=== PATIENT | female | born 1965 | race Caucasian/White ===

== ENCOUNTER 2020-09-11 08:01 | Day surgery (SDC) | payer OTHER, SELFPAY ==
[2020-09-10 12:15] VITALS: BMI 33.3
[2020-09-11] VITALS (12 sets, daily range): BP systolic 129–161; BP diastolic 71–93; PULSE 82–117; RESP 14–22; TEMP 36.3–36.9; O2SAT 94–100
[2020-09-11 08:22] LABS: OR HCG Qualitative Urine Negative (Negative)
[2020-09-11] MEDS: sodium chloride 0.9% 1,000 ML 30 ML IV (08:50)
--- NOTE | 2020-09-11 09:06 | ANES.PREANE2 ---
Pre-Anesthetic Assessment Pre-Anesthetic Assessment: Height/Weight: Height 1.57 m Weight 82.554 kg Temp Pulse Resp BP Pulse Ox 98.2 F 82 18 161/82 98 09/11/20 08:25 09/11/20 08:25 09/11/20 08:25 09/11/20 08:25 09/11/20 08:25 Preop Diagnosis: cholecystitis Proposed Procedure: Operation Date: 09/11/20 09:30 Proposed Procedures p Laparoscopic poss open Cholecystectomy 21494 k82.2(Not Applicable) - David Hinton MD Last intake: Intake Last Liquid Date 09/10/20 Last Liquid Time 21:30 Last Solid Date 09/10/20 Last Solid Time 19:00 Social: Social History: No alcohol and No tobacco Exam: Pre-Anes Outpt Exam: alert, oriented x 3, clear to auscultation bilaterally and regular rate & rhythm Airway: Submandibular: WNL Cervical ROM: WNL MP: 2 Dentition: Full History/ROS: No significant history except as noted and No significant complaints Pulmonary: Pulmonary: Sleep apnea (cpap) CV/HEM: CV/HEM: None reported : Comments: kidney stones Hepatic: Hepatic: None reported GI: GI: GERD (controlled) Metabolic: Metabolic: None reported Musc/skel: Musc/skel: None reported Neuropsych: Neuropsych: PUENTE Anesthetic Plan: ASA status: 2 Anesthesia: General Meds/Allergies Current Medications: Current Medications Generic Name Dose Route Start Last Admin Trade Name Freq PRN Reason Stop Dose Admin Sodium Chloride 1,000 mls @ 30 ml s/hr 09/11/20 08:15 09/11/20 08:50 Sodium Chloride 0.9% IV 09/12/20 08:14 30 mls/hr .Q24H MAGDIEL Administration PFSH Anesthesia PFSH: Medical History Hypertension Sleep apnea Ureteral calculi Surgical History H/O section x 2 H/O colonoscopy 2017 H/O cystoscopy H/O lithotripsy History of appendectomy Hx of tubal ligation Family History Father CAD (coronary artery disease) Cancer Diabetes Hypertension Denies family history of Anesthesia complication Bleeding disorder Social History Smoking and tobacco status: never smoked Alcohol intake: never Lives independently: Yes Marital status: / Current occupational status: employed History of recent travel: No Female Reproductive History: Date of last menstrual period: 09/10/20 Data Anesthesia Other Labs: Laboratory Results - last 48 hr 09/11/20 08:19 Urine HCG, Qual Negative Cardiac Studies: No Data to Display
[2020-09-11] MEDS: scopolamine 1.5 Patch 1 PATCH TRANSDERMA (09:07)
--- NOTE | 2020-09-11 09:32 | W.PM.OPSUD ---
Surgery/Procedure H&P Update DATE OF PROCEDURE: September 11, 2020 DATE H&P PERFORMED: 08/30/20 H&P UPDATE INFORMATION: I have reviewed H&P completed within last 30 days, I have examined patient prior to procedure and No changes to prior documentation PREOP DIAGNOSIS: cholecystitis PLANNED PROCEDURE: Operation Date: 09/11/20 09:30 Proposed Procedures p Laparoscopic poss open Cholecystectomy 63770 k82.2(Not Applicable) - David Hinton MD
--- NOTE | 2020-09-11 10:55 | SUR.PHASEI ---
1052- ORAL AIRWAY OUT, SIMPLE MASK AT 6LPM SAT 97%
[2020-09-11] MEDS: morphine 4 mg/mL SDV 1 mL 2 MG IVP (11:07)
--- NOTE | 2020-09-11 11:10 | PM.OP ---
Operative Report Date of procedure: September 11, 2020 Pre-op Diagnosis: Biliary dyskinesia Post-op diagnosis: same Procedure Done: Laparoscopic cholecystectomy Specimens removed/disposition: Gallbladder Surgeon: David Hinton Anesthesia: General Condition: stable Disposition: PACU Procedure: The patient was taken to the operating room and was intubated under general anesthesia. After the antibiotic had been administered, the abdomen was prepped and draped in a sterile manner. Using a #15 blade, a 1 centimeter infraumbilical curvilinear incision was made and using an open Gucci technique the peritoneal cavity was entered. A 10 millimeter port was placed and 15 millimeters of pneumoperitoneum was created. A 10 millimeter, 30 degrees scope was then introduced. Three 5 millimeter ports were placed in the epigastric, midclavicular and the anterior axillary line two fingerbreadths below the costal margin on the right side under the direct visualization. Ratcheted forceps were introduced into the lateral most port and was used to retract the fundus of the gallbladder cephalad and using forceps the infundibulum of the gallbladder was retracted laterally. Using L-hook cautery the peritoneum overlying the Calot's triangle was opened medially and laterally until the cystic duct and the cystic artery were skeletonized. Dissection was carried along the body of the gallbladder and after ensuring critical view of safety, 4 clips applied on the cystic duct and 3 clips applied on the cystic artery and cut leaving, 3 clips on the remaining portion of the duct and 2 clips on the remaining portion of the artery. The rest of the gallbladder was dissected off the liver using L-hook cautery. There was no bleeding or bile leaking noted from the gallbladder fossa and the clips appeared to be in place. There was a tear in the body of the gallbladder where it was retracted with drainage of bile which was irrigated and suctioned out. There was no spillage of stones. An EndoCatch bag was introduced to remove the gallbladder. All the ports were removed under direct visualization and there was no bleeding noted from the port sites. The fascia of the umbilicus was closed using [id number] 0 Vicryl sutures and the subcutaneous tissue was approximated using 3-0 Vicryl sutures. The skin at all four ports were closed using 4-0 Monocryl and Dermabond. A total of 10 millimeters of 0.5% Marcaine was infiltrated around the port sites. The patient was stable throughout the procedure.
[2020-09-11] MEDS: meperidine 50 mg/mL INJ 12.5 MG IVP (11:11)
[2020-09-11] MEDS: HYDROcodone-acetaminophen 5-325 mg Tablet 1 TAB PO (12:00)
--- NOTE | 2020-09-11 13:47 | ANE.PACU2 ---
Inpatient post-anesthesia follow up: Airway intact: Yes Vital signs: Temperature 98.5 F Pulse Rate 84 Respiratory Rate 18 Blood Pressure 134/93 Pulse Oximetry 100 Oxygen Delivery Me thod Nasal Cannula Oxygen Flow Rate 2 Fraction of Inspir ed Oxygen Hydration adequate: Yes Nausea and vomiting: No Pain level: 2 Mental status: Baseline
== END 2020-09-11 12:40 | disposition home or self-care (01) ==
LOC: OR 08:03
PROVIDERS: Anesthesiology; PCP Family Medicine; Visit Provider Surgery
PROC: 0FT44ZZ Resection of Gallbladder, Percutaneous Endoscopic Approach (ICD-10-PCS; CPT 47562; principal; 2020-09-11 09:30)
DX: K80.10 Calculus of gallbladder with chronic cholecystitis without obstruction (principal); G47.30 Sleep apnea, unspecified; K21.9 Gastro-esophageal reflux disease without esophagitis; I10 Essential (primary) hypertension; Z82.49 Family history of ischemic heart disease and other diseases of the circulatory system
CPT/HCPCS: 47562; 12345; 81025; 84703; 88304; J0131; J0690; J1100; J2175; J2250; J2270; J2405; J2704; J2765; J3010; J3490; J7030

== ENCOUNTER → 2021-12-24 12:32 | Outpatient (BNVA) | payer OTHER, SELFPAY | PROVIDERS: PCP Internal Medicine; Visit Provider Nurse Practitioner Family | DX: R63.1 Polydipsia (principal); R35.1 Nocturia; Z13.1 Encounter for screening for diabetes mellitus; E16.2 Hypoglycemia, unspecified | CPT/HCPCS: 80053; 81000; 83036; 85025 ==

== ENCOUNTER → 2021-12-25 08:49 | Outpatient (BNVA) | payer OTHER, SELFPAY | PROVIDERS: PCP Internal Medicine; Visit Provider Nurse Practitioner Family | DX: R63.1 Polydipsia (principal); R35.1 Nocturia; E16.2 Hypoglycemia, unspecified; D64.9 Anemia, unspecified; I10 Essential (primary) hypertension; Z13.1 Encounter for screening for diabetes mellitus | CPT/HCPCS: 82607; 82728; 82746; 83550 ==

== ENCOUNTER → 2022-01-06 13:26 | Day surgery (SDC) | payer OTHER, SELFPAY ==
[2022-01-06] MEDS: ferric carboxy (IVPB) 750 MG in sodium chloride 0.9% (100 ml) 100 ML 345 MG IV (13:44)
[2022-01-06 13:49] VITALS: BP 117/69; PULSE 77; RESP 18; TEMP 36.6; O2SAT 100
== END ==
PROVIDERS: PCP Internal Medicine; Visit Provider Internal Medicine
DX: D50.9 Iron deficiency anemia, unspecified (principal)
CPT/HCPCS: 96365; J1439

== ENCOUNTER → 2022-01-13 12:07 | Day surgery (SDC) | payer OTHER, SELFPAY ==
[2022-01-13 12:22] VITALS: BP 125/64; PULSE 70; RESP 18; TEMP 36.5; O2SAT 99
[2022-01-13] MEDS: ferric carboxy (IVPB) 750 MG in sodium chloride 0.9% (100 ml) 100 ML 345 MG IV (12:30)
== END ==
PROVIDERS: PCP Internal Medicine; Visit Provider Internal Medicine
DX: D50.9 Iron deficiency anemia, unspecified (principal)
CPT/HCPCS: 96365; J1439

== ENCOUNTER → 2022-04-27 16:34 | Outpatient (BNVA) | payer OTHER, SELFPAY | PROVIDERS: PCP Internal Medicine; Visit Provider Internal Medicine | DX: D50.0 Iron deficiency anemia secondary to blood loss (chronic) (principal); F32.A Depression, unspecified; I10 Essential (primary) hypertension; D50.9 Iron deficiency anemia, unspecified; N92.1 Excessive and frequent menstruation with irregular cycle | CPT/HCPCS: 83550; 85025 ==